=== PATIENT | male | born 1970 ===

== ENCOUNTER → 2016-06-28 18:14 | Outpatient (CLI) | payer OTHER ==
[2014-04-06 11:52] VITALS: BMI 41.8
[~2016-06-28 18:14] MED LIST: BENICAR HCT 40-1 TAB PO; BENICAR40 MG PO; CRESTOR10 MG PO; FLINTSTONE1 TAB.CHEW PO; MAGNESIUM OXID250 MG PO; NORCO 10/325 TA1 TA1 PO; TOPROL XL25 MG PO
== END | disposition home or self-care (01) ==
LOC: D.LABREF 18:14
DX: I10 Essential (primary) hypertension (principal)